=== PATIENT | male | born 1930 | race Caucasian/White ===

== ENCOUNTER 2016-12-05 10:06 | Observation (INO) | payer MEDICARE, OTHER ==
[2016-12-05 10:41] LABS: Hematocrit 33 % (42-52); Hemoglobin 11.5 g/dl (14.0-18.0); Mean Corpuscular HGB Conc 35 g/dl (31-36); Mean Corpuscular Hemoglobin 32 pg (27-31); Mean Corpuscular Volume 92 fL (80-94); Mean Platelet Volume 7 um3 (7.4-10.4); Red Blood Count 3.62 10^6/ul (4.0-5.4); Red Cell Distribution Width 13 % (10.5-15)
[2016-12-05 11:00] LABS: Troponin I 0.01 ng/mL (<0.04)
[2016-12-05 11:07] LABS: Albumin 3.9 g/dL (3.2-5.2); BUN/Creatinine Ratio 23.2 (8-20); Calcium 8.9 mg/dL (8.6-10.3); EGFR African American 96.4 (>60); Globulin 2.6 g/dL (2-4); Potassium 3.8 mmol/L (3.5-5.0); Total Bilirubin 0.6 mg/dL (0.2-1.0); Total Protein 6.5 g/dL (6.4-8.9)
--- NOTE | 2016-12-05 11:11 | RAD ---
INDICATION: Shortness of breath with exertion for 2 weeks. History of cardiac disease. COMPARISON: December 28, 2013 TECHNIQUE: Dual energy PA and routine lateral views of the chest were obtained. REPORT: Elevated lung volumes. Minimal prominence of the interstitial markings without change. Pacemaker partially obscures the LEFT lung PA view. No focal pulmonary lesion, alveolar consolidation, pleural effusion, pneumothorax. RIGHT atrial, RIGHT ventricular, and coronary sinus level pacemaker leads without change. Negative for cardiomegaly. Unremarkable central pulmonary vasculature and mediastinal contours. IMPRESSION: Stigmata of chronic obstructive pulmonary disease. No acute cardiopulmonary process evident.
--- NOTE | 2016-12-05 14:56 | ED ---
Prakash Galeas Adam, scribed for Mao Mullins MD on 12/05/16 at 1034 . Shortness of Breath - HPI Summary HPI Summary: He states that he has been short of breath intermittently for the past 3 weeks and it has been worsening. It is aggravated by ambulation but is not worse with recumbent position. He sleeps with 2 pillows. He also reports increased fatigue. He denies any edema but states that his shoes feel 1/2 size too tight. He denies cough, wheezing, and CP. PMHx includes ICD, 3 stents, spinal stenosis. He denies Hx of CHF and DM. He is a former smoker. He recently had a physical with Dr. Peter and states that he received an "A+". He has not had a recent ultrasound of his heart. - History of Current Complaint Chief Complaint: EDShortnessOfBreath Time Seen by Provider: 12/05/16 10:25 Hx Obtained From: Patient Onset/Duration: Gradual Onset, Lasting Weeks, Still Present Timing: Intermittent Episodes Lasting: Current Severity: Moderate Dyspnea At: Exertion Aggrevating Factors: Movement - Ambulation Alleviating Factors: Nothing Associated Signs & Symptoms: Negative - Allergy/Home Medications Allergies/Adverse Reactions: Allergies Allergy/AdvReac Type Severity Reaction Status Date / Time No Known Allergies Allergy Verified 06/10/16 11:35 Home Medications: Home Medications Aspirin EC Low Dose* [Ecotrin EC Low Dose*] 81 mg PO DAILY 12/05/16 [History Confirmed 12/05/16] Metoprolol Succinate XL TAB* [Toprol XL TAB*] 50 mg PO DAILY 12/05/16 [History Confirmed 12/05/16] Pregabalin CAP(*) [Lyrica CAP(*)] 50 mg PO BID 12/05/16 [History Confirmed 12/05] PMH/Surg Hx/FS Hx/Imm Hx Endocrine/Hematology History: Reports: Hx Anemia - Mild Denies: Hx Diabetes, Hx Thyroid Disease Cardiovascular History: Reports: Hx Auto Implanted Cardiovert Defib, Hx Coronary Artery Disease, Hx Hypercholesterolemia, Hx Hypertension, Hx Pacemaker/ ICD, Hx Syncope, Other Cardiovascular Problems/Disorders - CARDIAC CATH 2005 Denies: Hx Angina, Hx Myocardial Infarction, Hx Valvular Heart Disease Respiratory History: Reports: Hx Pneumonia Denies: Hx Asthma, Hx Chronic Obstructive Pulmonary Disease (COPD) GI History: Reports: Hx Gastroesophageal Reflux Disease, Hx Gastrointestinal Bleed, Other GI Disorders - COLON CANCER WITH RESECTION 1995 Denies: Hx Ulcer Musculoskeletal History: Reports: Hx Arthritis - OA, Hx Back Problems Sensory History: Reports: Hx Contacts or Glasses, Hx Eye Injury Opthamlomology History: Reports: Hx Contacts or Glasses, Hx Eye Injury Neurological History: Reports: Hx Headaches, Other Neuro Impairments/Disorders - SEE'S DR DHILLON FOR "SIGNALS DON'T ALWAY GO FROM BRAIN TO MUSCLES". - Cancer History Cancer Type, Location and Year: COLON CANCER 1995 - Surgical History Surgery Procedure, Year, and Place: COLON CANCER WITH RESECTION [address] [facility] 2 years ago Hx Anesthesia Reactions: No Infectious Disease History: No Infectious Disease History: Denies: Hx Clostridium Difficile, Hx Hepatitis, Hx Human Immunodeficiency Virus (HIV), Hx of Known/Suspected MRSA, Traveled Outside the in Last 30 Days - Family History Known Family History: Positive: None Family History: Reviewed and noncontributory - Social History Occupation: Retired Lives: With Family - Alcohol Use: Weekly Alcohol Amount: Guiness -one Hx Substance Use: No Substance Use Type: Reports: None Hx Tobacco Use: Yes Smoking Status (MU): Former Smoker Type: Pipe Review of Systems Positive: Fatigue Negative: Chest Pain Positive: Shortness Of Breath. Negative: Cough Negative: Edema All Other Systems Reviewed And Are Negative: Yes Physical Exam - Summary Physical Exam Summary: The patient is well-nourished in no acute distress and in no acute pain. The skin is pale. HEENT: The head is normocephalic and atraumatic. The pupils are equal and reactive. The conjunctivae are clear and without drainage. Nares are patent and without drainage. Mouth reveals moist mucous membranes and the throat is without erythema and exudate. The external ears are intact. Neck vein distension. HJR. Respiratory: Crackles in the bases of the lungs. Cardiovascular: Heart is regular rate and rhythm. There is no murmur or rub auscultated. Abdomen: The abdomen is soft and non-tender. There are normal bowel sounds heard in all four quadrants and there is no organomegaly palpated. Musculoskeletal: There is no back pain noted. Extremities are non-tender with full range of motion. Capillary refill less than 2 seconds. Pre-tibial edema. Neurological: Patient is alert and oriented to person, place and time. The patient has symmetrical motor strength in all four extremities. Cranial nerves are grossly intact. Deep tendon reflexes are symmetrical and equal in all four extremities. Psychiatric: The patient has an appropriate affect and does not exhibit any anxiety or depression. Triage Information Reviewed: Yes Vital Signs On Initial Exam: Initial Vitals Temp Pulse Resp BP Pulse Ox 98.2 F 83 20 133/59 100 12/05/16 10:10 12/05/16 10:10 12/05/16 10:10 12/05/16 10:10 12/05/16 10:10 Vital Signs Reviewed: Yes Diagnostics - Vital Signs Vital Signs Temp Pulse Resp BP Pulse Ox 12/05/16 10:10 98.2 F 83 20 133/59 100 - Laboratory Lab Results: Lab Results 12/05/16 12/05/16 12/05/16 Range/Units 10:25 10:25 10:25 WBC 6.0 (3.5-10.8) 10^3/ul RBC 3.62 L (4.0-5.4) 10^6/ul Hgb 11.5 L (14.0-18.0) g/dl Hct 33 L (42-52) % MCV 92 (80-94) fL MCH 32 H (27-31) pg MCHC 35 (31-36) g/dl RDW 13 (10.5-15) % Plt Count 166 (150-450) 10^3/ul MPV 7 L (7.4-10.4) um3 Neut % (Auto) 65.3 (38-83) % Lymph % (Auto) 20.4 L (25-47) % [place] % (Auto) 11.7 H (1-9) % Eos % (Auto) 1.8 (0-6) % Baso % (Auto) 0.8 (0-2) % Absolute Neuts (auto) 3.9 (1.5-7.7) 10^3/ul Absolute Lymphs (auto) 1.2 (1.0-4.8) 10^3/ul Absolute Monos (auto) 0.7 (0-0.8) 10^3/ul Absolute Eos (auto) 0.1 (0-0.6) 10^3/ul Absolute Basos (auto) 0 (0-0.2) 10^3/ul Absolute Nucleated RBC 0 10^3/ul Nucleated RBC % 0 INR (Anticoag Therapy) 0.98 (0.89-1.11) Sodium 130 L (133-145) mmol/L Potassium 3.8 (3.5-5.0) mmol/L Chloride 101 (101-111) mmol/L Carbon Dioxide 25 (22-32) mmol/L Anion Gap 4 (2-11) mmol/L BUN 22 (6-24) mg/dL Creatinine 0.95 (0.67-1.17) mg/dL Est GFR ( Amer) 96.4 (>60) Est GFR (Non-Af Amer) 75.0 (>60) BUN/Creatinine Ratio 23.2 H (8-20) Glucose 94 (70-100) mg/dL Lactic Acid (0.5-2.0) mmol/L Calcium 8.9 (8.6-10.3) mg/dL Total Bilirubin 0.60 (0.2-1.0) mg/dL AST 17 (13-39) U/L ALT 13 (7-52) U/L Alkaline Phosphatase 66 (34-104) U/L Troponin I 0.01 (<0.04) ng/mL B-Natriuretic Peptide ( - 100) pg/mL Total Protein 6.5 (6.4-8.9) g/dL Albumin 3.9 (3.2-5.2) g/dL Globulin 2.6 (2-4) g/dL Albumin/Globulin Ratio 1.5 (1-3) 12/05/16 12/05/16 Range/Units 10:25 10:25 WBC (3.5-10.8) 10^3/ul RBC (4.0-5.4) 10^6/ul Hgb (14.0-18.0) g/dl Hct (42-52) % MCV (80-94) fL MCH (27-31) pg MCHC (31-36) g/dl RDW (10.5-15) % Plt Count (150-450) 10^3/ul MPV (7.4-10.4) um3 Neut % (Auto) (38-83) % Lymph % (Auto) (25-47) % [place] % (Auto) (1-9) % Eos % (Auto) (0-6) % Baso % (Auto) (0-2) % Absolute Neuts (auto) (1.5-7.7) 10^3/ul Absolute Lymphs (auto) (1.0-4.8) 10^3/ul Absolute Monos (auto) (0-0.8) 10^3/ul Absolute Eos (auto) (0-0.6) 10^3/ul Absolute Basos (auto) (0-0.2) 10^3/ul Absolute Nucleated RBC 10^3/ul Nucleated RBC % INR (Anticoag Therapy) (0.89-1.11) Sodium (133-145) mmol/L Potassium (3.5-5.0) mmol/L Chloride (101-111) mmol/L Carbon Dioxide (22-32) mmol/L Anion Gap (2-11) mmol/L BUN (6-24) mg/dL Creatinine (0.67-1.17) mg/dL Est GFR ( Amer) (>60) Est GFR (Non-Af Amer) (>60) BUN/Creatinine Ratio (8-20) Glucose (70-100) mg/dL Lactic Acid 1.2 (0.5-2.0) mmol/L Calcium (8.6-10.3) mg/dL Total Bilirubin (0.2-1.0) mg/dL AST (13-39) U/L ALT (7-52) U/L Alkaline Phosphatase (34-104) U/L Troponin I (<0.04) ng/mL B-Natriuretic Peptide 52 ( - 100) pg/mL Total Protein (6.4-8.9) g/dL Albumin (3.2-5.2) g/dL Globulin (2-4) g/dL Albumin/Globulin Ratio (1-3) Result Diagrams: 12/05/16 10:25 12/05/16 10:25 Lab Statement: Any lab studies that have been ordered have been reviewed, and results considered in the medical decision making process. - Radiology CXR Radiology Interpretation Completed By: Radiologist - IMPRESSION: Stigmata of chronic obstructive pulmonary disease. No acute cardiopulmonary process evident. - EKG 10:16 Cardiac Rate: NL - 76 BPM EKG Interpretation: Paced rhythm - Additional Comments Diagnostic Additional Comments: Troponin I - 0.01 Re-Evaluation - Re-Evaluation First Eval Re-Evaluation Time: 13:50 - Patient agrees to be admitted to the hospital. Course/Dx - Course Course Of Treatment: A call was placed to Dr. Peter who is pt's PCP. the case was discussed and referred to Dr. Clements who recommended OBV placement and with echocardiogram and nuclear stress. the pt agreed to stay and at 14:00 - call placed to the hospitalist, Dr. Mejia. - Diagnoses Differential Diagnosis/HQI/PQRI: Positive: Bronchitis, CHF, [place], Pneumonia, Other - cardiomyopathy Provider Diagnoses: Dyspnea on exertion, Coronary artery disease Discharge - Discharge Plan Condition: Stable Disposition: ADMITTED TO [facility] The documentation as recorded by the Prakash marroquin Adam accurately reflects the service I personally performed and the decisions made by , Mao Mullins MD.
[2016-12-05] MEDS ORDERED: Acetaminophen TAB* 325 MG PO PRN (15:16)
[2016-12-05] MEDS ORDERED: Enoxaparin(*) 40 MG/0.4 ML SYR SUBCUT SCH (16:00)
--- NOTE | 2016-12-05 19:18 | HP ---
CONSULTATION REPORT / ADMISSION HISTORY AND PHYSICAL DATE OF CONSULT: 12/05/16 PRIMARY CARE PROVIDER: Unknown. PRIMARY MANAGER TRAINING AND DEVELOPMENT: Moisés Clements MD ADMITTING PROVIDER: VICKEY Lan SUPERVISING PHYSICIAN: Rocco Mejia MD * (DICTATED BY VICKEY LAN) CHIEF COMPLAINT: Dyspnea. HISTORY OF PRESENT ILLNESS: This is a very pleasant 86-year-old gentleman with history of ischemic cardiomyopathy, status post CABG with last ejection fraction estimated between 45% and 50%, who presented to the emergency department with complaints of dyspnea. He has had intermittent symptoms of dyspnea on exertion over the last few weeks or so but states that his symptoms were then fairly mild and he has generally just been trying to ignore them but this morning, he was awoken from sleep acutely short of breath. He denies any associated chest pain. He feels that he has had some mild lower extremity edema , but nothing terribly significant. He also notes that he has had some dizzy spells primarily with activity that just seemed to be associated with shortness of breath over the last several weeks as well. His feels that his complaints of dyspnea have been increasing over the last several weeks, although the patient disagrees with this. He denies any recent illness including fever. The patient has not mentioned his symptoms to his primary care provider or cattle care worker. He denies any recent changes to medications. The only thing of significant recently is that he had an EGD performed about 10 days ago and had what sounds to be a dilatation completed for maybe a mild stricture, but states that he felt well afterwards and his symptoms were not increasing after doing that procedure. PAST MEDICAL HISTORY: 1. Ischemic cardiomyopathy, status post CABG in 2013 with last ejection fraction estimated between 45% and 50%. 2. Spinal stenosis with some gait instability and uses a walker for ambulation. 3. Remote history of colorectal cancer, status post partial colectomy. 4. Hypertension. 5. GERD. 6. Chronic normocytic anemia. PAST SURGICAL HISTORY: 1. Colon resection for a malignant process. 2. Pacemaker placement. 3. CABG. 4. Generator exchange for his pacemaker in 2013 or 2014. 5. Tonsillectomy. HOME MEDICATIONS: 1. Aspirin 81 mg p.o. daily. 2. Atorvastatin 40 mg p.o. at bedtime. 3. Plavix 75 mg p.o. daily. 4. Digoxin 0.125 mg p.o. daily. 5. Enalapril 5 mg p.o. daily. 6. Metoprolol succinate 50 mg p.o. daily. 7. Multivitamin 1 tablet p.o. daily. 8. Nitroglycerine 0.4 mg sublingual as needed for chest pain. 9. Omeprazole 20 mg p.o. daily. 10. Lyrica 50 mg p.o. b.i.d. SOCIAL HISTORY: The patient lives at home with his . They live at an apartment in the [facility]. He has occasional alcoholic beverage. He smoked tobacco pipe for about 30 years and quit about 30 years ago. 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 REVIEW OF SYSTEMS: As noted above in HPI, otherwise negative. PHYSICAL EXAMINATION GENERAL: This is a very pleasant 86-year-old gentleman, accompanied by his , in no acute distress. She is sitting at the side of his emergency department stretcher. INITIAL VITAL SIGNS: Temperature 98.2 degrees Fahrenheit, pulse 83 beats per minute, respiratory rate 20 per minute, oxygen saturation 100% on room air, and blood pressure 133/59 mmHg. HEENT: Head is normocephalic and atraumatic. Mucous membranes are pink and moist. NECK: Neck is supple and free of lymphadenopathy. There is no obvious JVD. RESPIRATORY: Lungs are clear to auscultation without wheezes, crackles, or rhonchi. CARDIOVASCULAR: Heart has a regular rate and rhythm without murmurs, rubs, or gallops. ABDOMEN: Abdomen is soft and nontender to palpation. EXTREMITIES: Trace lower extremity edema appreciated. SKIN: Limited exam, shows no concerting rashes or lesions. PSYCH: The patient is alert and approximately oriented. LABORATORY EVALUATION: CBC shows white blood cell count of 6000, hemoglobin of 11.5 g/dL; and a platelet count of 166,000. INR normal at 0.98. Comprehensive metabolic panel shows sodium of 130 mmol/L that would seem to be fairly chronic for him; potassium 3.8 mmol/L; BUN of 22; and creatinine 0.95. Random glucose of 94 mmol/L. Lactic acid 1.2. Transaminases and total bilirubin within normal limits. Troponin negative at 0.01. BNP normal at 52. DIAGNOSTIC STUDIES/IMAGING: Chest x-ray shows pacemaker in place with leads in the atrium and ventricle and there was no acute process appreciated. EKG shows 100% paced rhythm. Echocardiogram from 2014 reviewed showed an EF of 45% to 50%. Cardiac cath from 2014 reviewed showed severe stenosis of LAD and proximal ramus intermedia for which the patient was referred for CABG. ASSESSMENT AND PLAN: This is an 86-year-old gentleman with a history of ischemic cardiomyopathy, EF estimated between 45% and 50% on last echo as well as spinal stenosis; chronic anemia; history of colorectal cancer, status post partial colectomy; hypertension; and gastroesophageal reflux disease who presents to the emergency department with complaints of dyspnea. Workup is unremarkable at this time. The patient is being admitted for observation. 1. Dyspnea - etiology is unknown, but suspect this to be cardiac in origin given his complaints of associated dizziness and his complaints being mostly exertional. He did have some acute episode of dyspnea that awoke him from sleep this morning. Troponin negative at this time and BNP negative and no obvious clinical signs of heart failure. Plan to get one additional troponin, which should be at least 6 hours from the onset of his symptoms, but he is asymptomatic at this time but his EKG is nondiagnostic given his paced status. We will plan to repeat an echocardiogram and nuclear stress testing to look for either valvular ischemic etiology of his complaints. We will plan to continue with home medications at this time. We will continue telemetry monitoring. 2. Hyponatremia - this seems to be chronic for him. No intervention planned at this time. We will repeat a basic metabolic panel in the morning. 3. Chronic normocytic anemia - hemoglobin appears to be near baseline. 4. Hypertension - continue home medications. 5. Gastroesophageal reflux disease. 6. Ischemic cardiomyopathy, status post CABG in 2013 with last ejection fraction estimated at 45% to 50% without obvious acute exacerbation. 7. Code status - the patient is DNR. 8. Health care proxy: His . 8. DVT prophylaxis - the patient is at moderate risk for deep vein thrombosis and will be placed on 40 mg of Lovenox subcu once daily for prophylaxis. DISPOSITION: The patient is being admitted to observation status for complaints of dyspnea with cardiac workup pending. Anticipate discharge tomorrow. VICKEY LAN CC: Dr. Clements * [id number]/[facility] #: [id number] KIMBERLEE
[2016-12-05] MEDS: Pregabalin CAP(*) 50 MG PO SCH (20:10)
[2016-12-05] MEDS ORDERED: Atorvastatin* 40 MG TAB PO SCH (21:00)
[2016-12-06 06:22] LABS: BUN/Creatinine Ratio 20.2 (8-20); Calcium 9.4 mg/dL (8.6-10.3); EGFR Non-African American 80.9 (>60); Potassium 4.1 mmol/L (3.5-5.0)
[2016-12-06] MEDS ORDERED: CMCS:Pantoprazole TAB (NF) 40 MG TAB PO SCH (07:30)
[2016-12-06] MEDS ORDERED: Digoxin TAB* 0.125 MG PO SCH (09:00)
[2016-12-06] MEDS ORDERED: Clopidogrel TAB* 75 MG PO SCH (09:00)
[2016-12-06] MEDS ORDERED: Enalapril TAB* 5 MG PO SCH (09:00)
[2016-12-06] MEDS ORDERED: Metoprolol Succinate XL TAB* 50 MG PO SCH (09:00)
[2016-12-06] MEDS ORDERED: Aspirin EC Low Dose* 81 MG TAB.EC PO SCH (09:00)
[2016-12-06] MEDS ORDERED: Aminophylline IV* 25 MG/ML 10 ML VIAL ONE (09:23)
[2016-12-06] MEDS ORDERED: Regadenoson* 0.4 MG/5 ML SYRINGE ONE (09:23)
--- NOTE | 2016-12-06 11:08 | RAD ---
Edited for charges. Indication: Coronary artery disease, dyspnea on exertion. Cardiac perfusion scan was performed after intravenous injection of 10.2 mCi of technetium 99m tetrofosmin for the rest portion of the study. Pharmacological stress was applied and 20 5. 4 mCi of technetium 99m tetrofosmin was injected for the stress portion of the stomach. Attenuation correction could not be performed. Homogeneous distribution of the radiotracer is noted throughout the left ventricle. Photopenia is noted in the inferior wall but this is felt to represent diaphragmatic attenuation as it is present on both rest and stress images. The ejection fraction is 54%. Evaluation of wall motion demonstrates no focal wall motion abnormality. IMPRESSION: Photopenia in the inferior wall likely is due to artifact from diaphragmatic attenuation. No definite fixed or reversible perfusion defect is identified. ASSESSMENT: Low risk Based on imaging criteria from ACC/AHA 2002 Guideline Update for the Management of Patients With Chronic Stable Angina Table 23. Noninvasive Risk Stratification. MTDD
[2016-12-06] MEDS: Pregabalin CAP(*) 50 MG PO SCH (11:31)
--- NOTE | 2016-12-06 11:46 | PN ---
Subjective Date of Service: 12/06/16 Interval History: Pt is feeling well. He feels ready to go home. He seems to minimize his symptoms but does admit to SOB with exertion. He denies any SOB at this time. Objective Active Medications: Acetaminophen (Tylenol Tab*) 650 mg PO Q4H PRN PRN Reason: FEVER/PAIN Aspirin (Aspirin Ec Low Dose*) 81 mg PO DAILY [facility] Last Admin: 12/06/16 11:31 Dose: 81 mg Atorvastatin Calcium (Lipitor*) 40 mg PO BEDTIME [facility] Last Admin: 12/05/16 20:10 Dose: 40 mg Clopidogrel Bisulfate (Plavix Tab*) 75 mg PO DAILY [facility] Last Admin: 12/06/16 11:32 Dose: 75 mg Digoxin (Lanoxin Tab*) 0.125 mg PO DAILY [facility] Last Admin: 12/06/16 11:32 Dose: 0.125 mg Enalapril Maleate (Vasotec Tab*) 5 mg PO DAILY [facility] Last Admin: 12/06/16 11:32 Dose: 5 mg Enoxaparin Sodium (Lovenox(*)) 40 mg SUBCUT Q24H [facility] Last Admin: 12/05/16 17:15 Dose: 40 mg Metoprolol Succinate (Toprol Xl Tab*) 50 mg PO DAILY [facility] Last Admin: 12/06/16 11:31 Dose: 50 mg Pantoprazole Sodium (Protonix Tab (Nf)) 40 mg PO DAILY@0730 [facility] Last Admin: 12/06/16 11:31 Dose: 40 mg Pregabalin (Lyrica Cap(*)) 50 mg PO BID [facility] Last Admin: 12/06/16 11:31 Dose: 50 mg Vital Signs 12/05/16 12/05/16 12/05/16 14:30 14:59 15:30 Temperature Pulse Rate 73 71 72 Respiratory 18 18 16 Rate Blood Pressure 149/74 146/77 (mmHg) O2 Sat by Pulse 100 100 100 Oximetry 12/05/16 12/05/16 12/05/16 16:14 20:10 20:23 Temperature 97.7 F 98.2 F Pulse Rate 73 70 Respiratory 16 14 18 Rate Blood Pressure 151/80 134/66 (mmHg) O2 Sat by Pulse 100 100 Oximetry 12/05/16 12/06/16 12/06/16 22:10 00:03 03:46 Temperature 98.6 F 97.8 F Pulse Rate 71 69 Respiratory 16 16 16 Rate Blood Pressure 114/57 134/62 (mmHg) O2 Sat by Pulse 99 97 Oximetry 12/06/16 12/06/16 12/06/16 07:37 11:31 11:32 Temperature 97.3 F Pulse Rate 70 72 Respiratory 16 16 Rate Blood Pressure 142/72 (mmHg) O2 Sat by Pulse 100 Oximetry Oxygen Devices in Use Now: None Appearance: Elderly male sitting up in bed, NAD Eyes: No Scleral Icterus Ears/Nose/Mouth/Throat: Mucous Membranes Moist Respiratory: Symmetrical Chest Expansion and Respiratory Effort, Clear to Auscultation Cardiovascular: NL Sounds; No Murmurs; No JVD, RRR, No Edema Abdominal: NL Sounds; No Tenderness; No Distention Extremities: No Clubbing, Cyanosis Skin: No Rash or Ulcers, No Nodules or Sclerosis Neurological: Alert and Oriented x 3 Result Diagrams: 12/05/16 10:25 12/06/16 05:29 Additional Lab and Data: Lab Results 12/05/16 12/05/16 12/05/16 Range/Units 10:25 10:25 10:25 WBC 6.0 (3.5-10.8) 10^3/ul RBC 3.62 L (4.0-5.4) 10^6/ul Hgb 11.5 L (14.0-18.0) g/dl Hct 33 L (42-52) % MCV 92 (80-94) fL MCH 32 H (27-31) pg MCHC 35 (31-36) g/dl RDW 13 (10.5-15) % Plt Count 166 (150-450) 10^3/ul MPV 7 L (7.4-10.4) um3 Neut % (Auto) 65.3 (38-83) % Lymph % (Auto) 20.4 L (25-47) % [place] % (Auto) 11.7 H (1-9) % Eos % (Auto) 1.8 (0-6) % Baso % (Auto) 0.8 (0-2) % Absolute Neuts (auto) 3.9 (1.5-7.7) 10^3/ul Absolute Lymphs (auto) 1.2 (1.0-4.8) 10^3/ul Absolute Monos (auto) 0.7 (0-0.8) 10^3/ul Absolute Eos (auto) 0.1 (0-0.6) 10^3/ul Absolute Basos (auto) 0 (0-0.2) 10^3/ul Absolute Nucleated RBC 0 10^3/ul Nucleated RBC % 0 INR (Anticoag Therapy) 0.98 (0.89-1.11) Sodium 130 L (133-145) mmol/L Potassium 3.8 (3.5-5.0) mmol/L Chloride 101 (101-111) mmol/L Carbon Dioxide 25 (22-32) mmol/L Anion Gap 4 (2-11) mmol/L BUN 22 (6-24) mg/dL Creatinine 0.95 (0.67-1.17) mg/dL Est GFR ( Amer) 96.4 (>60) Est GFR (Non-Af Amer) 75.0 (>60) BUN/Creatinine Ratio 23.2 H (8-20) Glucose 94 (70-100) mg/dL Lactic Acid (0.5-2.0) mmol/L Calcium 8.9 (8.6-10.3) mg/dL Total Bilirubin 0.60 (0.2-1.0) mg/dL AST 17 (13-39) U/L ALT 13 (7-52) U/L Alkaline Phosphatase 66 (34-104) U/L Troponin I 0.01 (<0.04) ng/mL B-Natriuretic Peptide ( - 100) pg/mL Total Protein 6.5 (6.4-8.9) g/dL Albumin 3.9 (3.2-5.2) g/dL Globulin 2.6 (2-4) g/dL Albumin/Globulin Ratio 1.5 (1-3) 12/05/16 12/05/16 Range/Units 10:25 10:25 WBC (3.5-10.8) 10^3/ul RBC (4.0-5.4) 10^6/ul Hgb (14.0-18.0) g/dl Hct (42-52) % MCV (80-94) fL MCH (27-31) pg MCHC (31-36) g/dl RDW (10.5-15) % Plt Count (150-450) 10^3/ul MPV (7.4-10.4) um3 Neut % (Auto) (38-83) % Lymph % (Auto) (25-47) % [place] % (Auto) (1-9) % Eos % (Auto) (0-6) % Baso % (Auto) (0-2) % Absolute Neuts (auto) (1.5-7.7) 10^3/ul Absolute Lymphs (auto) (1.0-4.8) 10^3/ul Absolute Monos (auto) (0-0.8) 10^3/ul Absolute Eos (auto) (0-0.6) 10^3/ul Absolute Basos (auto) (0-0.2) 10^3/ul Absolute Nucleated RBC 10^3/ul Nucleated RBC % INR (Anticoag Therapy) (0.89-1.11) Sodium (133-145) mmol/L Potassium (3.5-5.0) mmol/L Chloride (101-111) mmol/L Carbon Dioxide (22-32) mmol/L Anion Gap (2-11) mmol/L BUN (6-24) mg/dL Creatinine (0.67-1.17) mg/dL Est GFR ( Amer) (>60) Est GFR (Non-Af Amer) (>60) BUN/Creatinine Ratio (8-20) Glucose (70-100) mg/dL Lactic Acid 1.2 (0.5-2.0) mmol/L Calcium (8.6-10.3) mg/dL Total Bilirubin (0.2-1.0) mg/dL AST (13-39) U/L ALT (7-52) U/L Alkaline Phosphatase (34-104) U/L Troponin I (<0.04) ng/mL B-Natriuretic Peptide 52 ( - 100) pg/mL Total Protein (6.4-8.9) g/dL Albumin (3.2-5.2) g/dL Globulin (2-4) g/dL Albumin/Globulin Ratio (1-3) Assess/Plan/Problems-Billing Mr Yip is an 86 yo M who has a h/o ischemic CM, HTN, anemia, GERD and spinal stenosis who presented to the ER with c/o dyspnea on exertion. - Patient Problems (1) Dyspnea on exertion Current Visit: Yes Status: Acute Code(s): R06.09 - OTHER FORMS OF DYSPNEA SNOMED Code(s): 84055009 Comment: On admission it was questioned if his MOLINA was secondary to cardiac ischemia. Stress test was performed and revealed no fixed or reversible perfusion defects. Etiology of MOLINA is unknown. He can follow up as an outpatient for further workup. He is stable for d/c home today. (2) Dizziness Current Visit: Yes Status: Acute Code(s): R42 - DIZZINESS AND GIDDINESS SNOMED Code(s): 547669527 Comment: ? orthostasis. Will have orthostatics checked. (3) Ischemic cardiomyopathy Current Visit: Yes Status: Acute Code(s): I25.5 - ISCHEMIC CARDIOMYOPATHY SNOMED Code(s): 419570054 Comment: Repeat echo report is pending. Continue BBlocker, ACEI, statin, ASA , plavix and digoxin. (4) HTN (hypertension) Current Visit: Yes Status: Acute Code(s): I10 - ESSENTIAL (PRIMARY) HYPERTENSION SNOMED Code(s): 11088373 Comment: BP is under good control. Continue enalapril and metoprolol XL. (5) GERD (gastroesophageal reflux disease) Current Visit: Yes Status: Acute Code(s): K21.9 - GASTRO-ESOPHAGEAL REFLUX DISEASE WITHOUT ESOPHAGITIS SNOMED Code(s): 793435801 Comment: Continue protonix. (6) Spinal stenosis Current Visit: Yes Status: Acute Code(s): M48.00 - SPINAL STENOSIS, SITE UNSPECIFIED SNOMED Code(s): 56008662 Comment: Continue ambulation with a walker. (7) DVT prophylaxis Current Visit: Yes Status: Acute Code(s): JKF2019 - SNOMED Code(s): 170758494 Comment: lovenox (8) DNR (do not resuscitate) Current Visit: Yes Status: Acute
--- NOTE | 2016-12-06 12:01 | ECHO ---
Patient: VENKATESH PAIGE [facility] Rec#: [id number] : 1930 Date: 12/06/2016 Age: 86y Height: 180.34 cm / 71.0 in Weight: 79.83 kg / 175.9 lbs Sex: M BSA: 2 Room#: [facility] Admit Date#: 12/05/2016 Type: Inpatient Referring: Jayden Mejia MD Reading: Eron Tsai MD [employer] Ware[employer] Developer: Danielle Hess YEYO CC: Venkatesh Peter MD CC: Moisés Clements MD Transthoracic Echocardiogram Indication: Dyspnea,CAD BP: 134/62 HR: 111 Rhythm: SVT Findings History: Non-ischemic cardiomyopathy,VT-SVT,s/p AICD pacer insert,CABG 2013,HTN. Technical Comments: The study is technically limited due to poor parasternal windows. Completed at 1022. Left Ventricle: Mild concentric left ventricular hypertrophy is observed. Global left ventricular wall motion and contractility are within normal limits. Left ventricular systolic function is at the lower limits of normal. The estimated ejection fraction is 50-55%. There is no consistent Doppler evidence of clinically significant diastolic dysfunction. Left Atrium: The left atrial chamber size is normal. Right Ventricle: The right ventricular cavity size is normal. The right ventricular global systolic function is normal. A pacemaker wire is visualized in the right ventricle. Right Atrium: The right atrial cavity size is normal. A pacemaker wire is visualized in the right atrium. Aortic Valve: The aortic valve is trileaflet. There is mild to moderate aortic regurgitation. There is no evidence of aortic stenosis. Mitral Valve: The mitral valve leaflets appear normal. There is a trace of mitral regurgitation. Tricuspid Valve: The tricuspid valve leaflets are normal. There is trace tricuspid regurgitation. There is no tricuspid stenosis. Pulmonic Valve: The pulmonic valve appears normal. There is no evidence of pulmonic regurgitation. There is no pulmonic stenosis. Pericardium: The pericardium appears normal. Aorta: There is no dilatation of the ascending aorta. There is no dilatation of the aortic arch. There is mild dilatation of the aortic root. Pulmonary Artery: The main pulmonary artery appears normal. Venous: The inferior vena cava appears normal in size. There is an approximate 50% respiratory change in the inferior vena cava dimension. Conclusions Global left ventricular wall motion and contractility are within normal limits. Left ventricular systolic function is at the lower limits of normal. The estimated ejection fraction is 50-55%. There is no consistent Doppler evidence of clinically significant diastolic dysfunction. The right ventricular global systolic function is normal. There is mild to moderate aortic regurgitation. There is a trace of mitral regurgitation. There is trace tricuspid regurgitation. Compared to study of 11/07/13, there is no significant change Measurements Name Value Normal Range RVIDd (AP) 2D 2.2 cm (0.9 - 2.6) RAd ISD 4CH 4.7 cm (3.4 - 4.9) RA (A4C)W 3.7 cm (2.9 - 4.6) IVSd (2D) 1.1 cm (0.6 - 1) LVPWd (2D) 1.1 cm (0.6 - 1) LVIDd (2D) 4 cm (3.6 - 5.4) LVIDs (2D) 2.5 cm - LV FS (2D) 37 % (25 - 45) Aortic Annulus 2.1 cm (1.4 - 2.6) Ao root diameter (2D) 3.7 cm (2.1 - 3.5) Ascending Ao 3.2 cm (2.1 - 3.4) Aortic arch 1.9 cm (1.8 - 3.4) Descending Ao 0.6 cm - LA dimension (AP) 2D 2.9 cm (2.3 - 3.8) LAd ISD 4CH 5.9 cm (2.9 - 5.3) LA ISD 4CH W 3.2 cm (2.5 - 4.5) Name Value Normal Range LA ESV SP 4CH (A/L) 35 ml - LA ESV SP 2CH (A/L) 43 ml - LA ESV BP (A/L) 45 ml - LA ESV BP (A/L) index 22.4 ml/m2 - LA ESV SP 4CH (MOD) 32 ml - LA ESV SP 2CH (MOD) 40 ml - Name Value Normal Range MV E-wave Vmax 0.5 m/sec - MV deceleration time 142 msec - MV A-wave Vmax 0.9 m/sec - MV E:A ratio 0.5 ratio - Name Value Normal Range AV Vmax 1.4 m/sec - AV VTI 29.4 cm - AV peak gradient 7.98 mmHg - AV mean gradient 3.69 mmHg - LVOT Vmax 1 m/sec - LVOT VTI 20.2 cm - LVOT peak gradient 3.93 mmHg - LVOT mean gradient 1.93 mmHg - AR PHT 477 msec - AR peak gradient 80.25 mmHg - Name Value Normal Range TR Vmax 1.9 m/sec - TR peak gradient 15 mmHg - RAP 8 mmHg - RVSP 23 mmHg - IVC diameter 1.9 cm - Name Value Normal Range PV Vmax 0.8 m/sec - PV peak gradient 2.6 mmHg -
[2016-12-06 12:33] VITALS: BP 140/60
--- NOTE | 2016-12-07 13:12 | DS ---
DISCHARGE SUMMARY: DATE OF ADMISSION: 12/05/16 DATE OF DISCHARGE: 12/06/16 PRIMARY CARE PROVIDER: Dr. Peter. SCRAPER TENDER: Dr. Clements. PRINCIPAL DIAGNOSES: 1. Dyspnea on exertion of unclear etiology. 2. Dizziness - possibly orthostasis. SECONDARY DIAGNOSES: 1. Ischemic cardiomyopathy. 2. Spinal stenosis. 3. History of colorectal cancer, status post partial colectomy. 4. Hypertension. 5. Gastroesophageal reflux disease. 6. Chronic normocytic anemia. DISCHARGE MEDICATIONS: 1. Nitroglycerin 0.4 mg SL q. 5 minutes p.r.n. chest pain. 2. Multivitamin 1 tab p.o. daily. 3. Enalapril 5 mg p.o. daily. 4. Digoxin 0.125 mg p.o. daily. 5. Plavix 75 mg p.o. daily. 6. Lipitor 40 mg p.o. q.h.s. 7. Aspirin 81 mg p.o. daily. 8. Lyrica 50 mg p.o. b.i.d. 9. Omeprazole 20 mg p.o. daily. 10. Metoprolol XL 50 mg p.o. daily. HOSPITAL COURSE: Mr. Yip is an 86-year-old male who has a history of an ischemic cardiomyopathy, who presents to the emergency room with complaints of dyspnea on exertion that has been present over the last few weeks. The patient' s , however, felt that dyspnea had been worsening over the last several weeks; however, the patient disagreed with this. The patient has not had any other associated symptoms such as chest pain. The patient was admitted to be evaluated for potential cardiac source of his dyspnea on exertion. He underwent transthoracic echocardiogram that revealed his EF to be 50-55% with global left ventricular wall motion and contractility being within normal limits. There is no significant valvular abnormalities and no significant change from the echo done on 11/07/13. The patient also underwent nuclear stress test on the day of discharge that revealed photopenia in the inferior wall likely due to artifact from diaphragmatic attenuation. No definite fixed or reversible perfusion defects were identified. The cause of the patient's dyspnea on exertion is not completely clear. He questions whether or not it may be related to his spinal stenosis and the exertion that he has to put forth to ambulate. At this point, it is felt that the patient is stable for discharge home. The patient has also been complaining of intermittent dizziness. He was found to be mildly orthostatic. We discussed staying well hydrated. At this point, the patient wishes to be discharged home. FOLLOWUP CONCERNS: The patient is being discharged home today 12/06/16. He is to follow up with Dr. Peter in the next 4 to 7 days. ACTIVITY LEVEL: As tolerated. DIET: Heart healthy. CONDITION ON DISCHARGE: Stable. TIME SPENT: 25 minutes was spent discharging this patient. CC: Dr. Peter; Dr. Clements * [id number]/[facility] #: [id number] MTDD
== END 2016-12-06 14:22 | disposition home or self-care (01) ==
LOC: ED 10:06 → MEDTELE 14:26
PROVIDERS: ADMIT Internal Medicine; ATTEND Hospitalist
DX: R06.00 Dyspnea, unspecified (principal); R42 Dizziness and giddiness; I42.8 Other cardiomyopathies; I25.5 Ischemic cardiomyopathy; M48.00 Spinal stenosis, site unspecified; I10 Essential (primary) hypertension; K21.9 Gastro-esophageal reflux disease without esophagitis; Z85.038 Personal history of other malignant neoplasm of large intestine; Z90.49 Acquired absence of other specified parts of digestive tract; Z79.82 Long term (current) use of aspirin; D64.9 Anemia, unspecified; Z95.1 Presence of aortocoronary bypass graft; Z95.0 Presence of cardiac pacemaker
CPT/HCPCS: 36415; 71020; 78452; 80048; 80053; 80162; 83605; 83880; 84484; 85025; 85610; 93005; 93017; 93306; 96374; 99283; A9270-GY; A9502; G0378; J0280; J1650; J2785

== ENCOUNTER 2017-04-05 07:53 | Day surgery (SDC) | payer MEDICARE, OTHER ==
[~2017-04-05 07:53] MED LIST: Acetaminophen TAB* 325 MG PO PRN; Buffered Lidocaine 0.9% SYRIN* 5 ML/SYR SYRINGE INTRADERM ONE; Buffered Lidocaine 0.9% SYRIN* 5 ML/SYR SYRINGE ONE; Cyclopentolate 1% OPTH.SOL* 2 ML BTL ONE; Flurbiprofen 0.03% OPTH.SOL* 2.5 ML BTL ONE; Lidocaine 1% MPF* 2 ML VIAL ONE; Lidocaine 2% EPI 1:200000 MPF* 20 ML VIAL ONE; Neomycin/Polymy/Dex OPTH.SUSP* MAXITROL 0.1% 5 ML ONE; Phenylephrine 2.5% OPTH.SOL* 2 ML BTL ONE; Povidone Iodine 5% OPTH* 30 ML BTL ONE; Proparacaine 0.5% OPHTH.SOL* 15 ML BTL ONE; acetaZOLAMIDE TAB* 250 MG ONE
[2017-04-05] MEDS ORDERED: Midazolam* 1 MG/ML 2 ML VIAL (2 MG) ONE (09:35)
--- NOTE | 2017-04-05 10:30 | OP ---
DATE OF OPERATION: 04/05/2017 - [facility] DATE OF : 1930. SURGEON: Supa Portillo M.D. PREOPERATIVE DIAGNOSIS: Cataract left eye. POSTOPERATIVE DIAGNOSIS: Cataract left eye. OPERATIVE PROCEDURE: Phacoemulsification left eye with IOL. DESCRIPTION OF PROCEDURE: The patient was brought to the operating room after being given 1/2% Alcaine with epinephrine drops in the preoperative area. The eye was prepped and draped in the usual sterile fashion. Sterile drape and eyelid speculum were placed. Again, topical 1/2% Alcaine with epinephrine was given. A paracentesis incision was made at the 3 o'clock position with the No.75 blade. Clear cornea incision 2.2 x 2.2-mm was created at the 6 o'clock position starting at the anterior limbus using the 2.2-mm keratome. The anterior chamber was irrigated with 0.4 mL of 1% non-preservative intracameral lidocaine and filled with DisCoVisc. A capsulorrhexis was completed using the cystotome and the Utrata forceps. Hydrodissection was performed with balanced salt solution. The lens nucleus was removed with the Phacoemulsification handpiece without incident. Cortex was removed with the irrigation-aspiration handpiece. The capsular bag was re-inflated using DisCoVisc and an SN60WF 20.5 implant was inserted with the shooter. The irrigation-aspiration handpiece was used to remove all residual DisCoVisc. The eye was refilled with balanced salt solution and the wound checked and found to be watertight. Topical Maxitrol drops were given. [id number]/[facility] #: [id number] [facility]
[2017-04-05 10:36] VITALS: BP 150/75
== END 2017-04-05 10:39 | disposition home or self-care (01) ==
LOC: OREAST 07:53
PROVIDERS: ATTEND Specialist
DX: H25.812 Combined forms of age-related cataract, left eye (principal); H43.813 Vitreous degeneration, bilateral; H35.3131 Nonexudative age-related macular degeneration, bilateral, early dry stage; I10 Essential (primary) hypertension; Z95.810 Presence of automatic (implantable) cardiac defibrillator; Z79.01 Long term (current) use of anticoagulants; Z87.891 Personal history of nicotine dependence
CPT/HCPCS: A9270-GY; J2250; V2632

== ENCOUNTER 2017-04-12 08:26 | Day surgery (SDC) | payer MEDICARE, OTHER ==
[~2017-04-12 08:26] MED LIST changes: -Buffered Lidocaine 0.9% SYRIN* 5 ML/SYR SYRINGE ONE; -Lidocaine 1% MPF* 2 ML VIAL ONE; +Lidocaine 2% MPF* 2 ML VIAL ONE
[2017-04-12] MEDS ORDERED: fentaNYL* 50 MCG/ML 2 ML VIAL (100 MCG VIAL) ONE (09:24)
[2017-04-12] MEDS ORDERED: Midazolam* 1 MG/ML 2 ML VIAL (2 MG) ONE (09:24)
[2017-04-12 11:01] VITALS: BP 143/70
--- NOTE | 2017-04-12 14:40 | OP ---
OPERATIVE NOTE: DATE OF OPERATION: 04/12/17 DATE OF : [birth year] SURGEON: Supa Portillo MD PREOPERATIVE DIAGNOSIS: Cataract, right eye. POSTOPERATIVE DIAGNOSIS: Cataract, right eye. OPERATIVE PROCEDURE: Phacoemulsification, right eye with IOL. PROCEDURE: The patient was brought to the operating room after being given 1/2% Alcaine with epinep hrine drops in the preoperative area. The eye was prepped and draped in the usual sterile fashion. Sterile drape and eyelid speculum were placed. Again, topical 1/2% Alcaine with epinephrine was gi tavo. A paracentesis incision was made at the 9 o'clock position with the No.75 blade. Clear cornea incision 2.2 x 2.2-mm was created at the 12 o'clock position starting at the anterior limbus using the 2.2-mm keratome. The anterior chamber was irrigated with 0.4 mL of 1% non-preservative intracam eral lidocaine and filled with DisCoVisc. A capsulorrhexis was completed using the cystotome and th e Utrata forceps. Hydrodissection was performed with balanced salt solution. The lens nucleus was r emoved with the Phacoemulsification handpiece without incident. Cortex was removed with the irrigat ion-aspiration handpiece. The capsular bag was re-inflated using DisCoVisc and an SN60WF 20.5 impla nt was inserted with the shooter. The irrigation-aspiration handpiece was used to remove all residu al DisCoVisc. The eye was refilled with balanced salt solution and the wound checked and found to b e watertight. Topical Maxitrol drops were given. [id number]/[facility] #: [id number]
== END 2017-04-12 11:15 | disposition home or self-care (01) ==
LOC: OREAST 08:26
PROVIDERS: ATTEND Specialist
DX: H25.811 Combined forms of age-related cataract, right eye (principal); H35.3131 Nonexudative age-related macular degeneration, bilateral, early dry stage; H43.813 Vitreous degeneration, bilateral; I10 Essential (primary) hypertension; Z87.891 Personal history of nicotine dependence; I48.91 Unspecified atrial fibrillation; Z79.01 Long term (current) use of anticoagulants; Z95.5 Presence of coronary angioplasty implant and graft
CPT/HCPCS: A9270-GY; J2250; J3010; V2632

== ENCOUNTER 2019-02-24 11:38 | Emergency (ER) | payer MEDICARE, OTHER ==
[2019-02-24] MEDS ORDERED: Acetaminophen TAB* 325 MG PO ONE (13:13)
[2019-02-24 13:34] VITALS: BP 169/94
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
== END 2019-02-24 13:33 | disposition home or self-care (01) ==
LOC: ED 11:38
DX: S16.1XXA Strain of muscle, fascia and tendon at neck level, initial encounter (principal); Z87.891 Personal history of nicotine dependence; Z95.810 Presence of automatic (implantable) cardiac defibrillator; I25.10 Atherosclerotic heart disease of native coronary artery without angina pectoris; E78.00 Pure hypercholesterolemia, unspecified; I10 Essential (primary) hypertension; K21.9 Gastro-esophageal reflux disease without esophagitis; Z85.038 Personal history of other malignant neoplasm of large intestine; V89.2XXA Person injured in unspecified motor-vehicle accident, traffic, initial encounter; Y92.9 Unspecified place or not applicable
CPT/HCPCS: 93005; 99282